=== PATIENT | female | born 1975 | race Caucasian/White ===

== ENCOUNTER → 2020-10-11 08:15 | Outpatient (CLI) | payer OTHER, SELFPAY ==
[2020-10-11 09:10] LABS: Add Manual Diff / Slide Review NO; Basophils Absolute Auto 100 /uL (0-100); Basophils Percent Auto 0.9 % (0-2); Eosinophils Absolute Auto 100 /uL (0-450); Eosinophils Percent Auto 0.9 % (2-4); Hematocrit 43.8 % (36-46); Hemoglobin 14.7 g/dL (12.0-16.0); Lymphocytes Absolute Auto 2100 /uL (1100-4500); Lymphocytes Percent Auto 27.4 % (25-40); Mean Corpuscular HGB Conc 33.5 % (30-36); Mean Corpuscular Hemoglobin 29.9 PG (26-34); Mean Corpuscular Volume 89.2 fL (80-100); Monocytes Absolute Auto 600 /uL (0-900); Monocytes Percent Auto 8.7 % (3-14); Neutrophils Absolute Auto 4700 /uL (1500-7000); Neutrophils Percent Auto 62.1 % (50-75); Platelet Count 367 X10^3/uL (150-400); Red Blood Cell Count 4.91 X10^6/uL (4.0-5.2); Red Cell Distribution Width 14.4 % (11.6-14.8); White Blood Cell Count 7.5 X10^3/uL (4.5-11.0)
[2020-10-11 09:36] LABS: BUN Creatinine Ratio 16.8 (6-22); Blood Urea Nitrogen 17 mg/dL (7-17); Calcium 9.4 mg/dL (8.4-10.2); Carbon Dioxide 26 mmol/L (22-32); Chloride 107 mmol/L (98-107); Cholesterol 215 mg/dL (140-199); Estimated Glomerular Filt Rate 59.3 mL/min (>60); Glucose 102 mg/dL (70-100); HDL Cholesterol 58 mg/dL (40-60); HEMOLYSIS < 15 (0-50); LDL Cholesterol Calculated 143 mg/dL (<100); Potassium 4.4 mmol/L (3.4-5.1); Sodium 137 mmol/L (137-145); Triglycerides 69 mg/dL (35-150)
[2020-10-11 10:03] LABS: Vitamin D 25 Hydroxy (D3) 51.2 ng/mL (30.0-100.0)
[2020-10-11 10:05] LABS: Free T3, Triiodothyronine Free 3.47 pg/mL (2.77-5.27); Free T4, Direct Thyroxine 1.29 ng/dL (0.78-2.19)
[2020-10-11 10:17] LABS: Thyroid Stimulating Hormone 1.21 uIU/mL (0.47-4.68)
[2020-10-11 10:20] LABS: Vitamin B12 380 pg/mL (239-931)
== END ==
PROVIDERS: Family Provider Family Medicine; PCP Family Medicine; Referring Provider Family Medicine; Visit Provider Family Medicine
DX: F41.9 Anxiety disorder, unspecified (principal); R03.0 Elevated blood-pressure reading, without diagnosis of hypertension; R20.2 Paresthesia of skin; Z13.220 Encounter for screening for lipoid disorders; Z13.29 Encounter for screening for other suspected endocrine disorder
CPT/HCPCS: 36415; 80048; 80061; 82306; 82607; 84439; 84443; 84481; 85025